=== PATIENT | male | born 1995 | race Caucasian/White ===

== ENCOUNTER 2023-12-06 13:03 | Emergency (ER) | payer OTHER ==
[~2023-12-06] VITALS: Ht 182.9 cm; Wt 84.4 kg
[~2023-12-06 13:03] MED LIST: ALBU90OI INH; AMOCLA500 PO; AZIT200SU PO; CODGUAEL PO; CRUTCH3 USE; HYDR1TAB94 PO; ONDA4ODT MM
== END 2023-12-06 14:33 | disposition home or self-care (01) ==
LOC: ER 13:03
DX: S43.401A Unspecified sprain of right shoulder joint, initial encounter (principal); X50.0XXA Overexertion from strenuous movement or load, initial encounter
CPT/HCPCS: 99283